=== PATIENT | male | born 1960 | race African-American/Black ===

== ENCOUNTER 2016-10-18 20:40 | Emergency (ER) | payer OTHER ==
[~2016-10-18] VITALS: Ht 182.9 cm; Wt 68.0 kg
[~2016-10-18 20:40] MED LIST: ALBU18HF2 IH; HALO100A2 IM; LORA2TAB95 PO; MAGN355O3 PO; [UNRECOGNIZED DRUG - CODE] PO
[2016-10-18 20:45] VITALS: BP 140/82
[2016-10-18] MEDS ORDERED: SILVER SULFADIAZINE CREAM 25 GM TUBE TP ONE (21:00)
[2016-10-18] MEDS ORDERED: SILVER SULFADIAZINE CREAM 25 GM TUBE ONE (21:11)
== END 2016-10-18 21:46 | disposition home or self-care (01) ==
LOC: ER 20:42
DX: T24.202A Burn of second degree of unspecified site of left lower limb, except ankle and foot, initial encounter (principal); T24.201A Burn of second degree of unspecified site of right lower limb, except ankle and foot, initial encounter; J45.909 Unspecified asthma, uncomplicated; F20.0 Paranoid schizophrenia; F17.200 Nicotine dependence, unspecified, uncomplicated; X08.8XXA Exposure to other specified smoke, fire and flames, initial encounter; Y93.89 Activity, other specified; Y92.89 Other specified places as the place of occurrence of the external cause; Y99.8 Other external cause status
CPT/HCPCS: 16020; 99284; A4606; Z7610